=== PATIENT | female | born 1985 | race Caucasian/White ===

== ENCOUNTER 2016-10-08 11:29 | Emergency (ER) | payer SELFPAY ==
[~2016-10-08] VITALS: Ht 165.1 cm; Wt 59.9 kg
--- NOTE | 2016-10-08 11:38 | NUR ---
PT AMBULATORY TO ER BED 21. VAGINAL BLEEDING. PT STATES 12 WEEKS IN VITRO. GOWNED AND PLACED ON MONITOR. NO OTHER COMPLAINTS. AWAITING MD THOMAS.
--- NOTE | 2016-10-08 11:47 | NUR ---
DR COELHO AT BEDSIDE FOR EVAL.
--- NOTE | 2016-10-08 11:55 | NUR ---
ADJUSTMENT EXAMINER AT BEDSIDE FOR BLOOD DRAW.
[2016-10-08 12:03] LABS: APPEARANCE,URINE Slightly Cloudy (CLEAR); BILIRUBIN,URINE Negative (NEGATIVE); BLOOD, URINE Moderate Ery/uL (NEGATIVE); COLOR,URINE Yellow (YELLOW); KETONES,URINE Negative (NEGATIVE); LEUKOCYTE ESTERASE ,URINE Negative (NEGATIVE); NITRITE, URINE Negative (NEGATIVE); PROTEIN,URINE Negative (NEGATIVE); UGLUCOSE Negative (NEGATIVE); UROBILINOGEN,URINE 0.2 EU/dL (0.2)
[2016-10-08 12:13] LABS: ADD URINE CULTURE YES; BACTERIA,URINE Few /HPF (None Seen); RBC,URINE 0-2 /HPF (0-2); SQUAMOUS EPITHELIAL CELL,UR Many /HPF (None Seen)
--- NOTE | 2016-10-08 12:54 | NUR ---
US TECH AT BEDSIDE FOR PELVIC ULTRASOUND.
--- NOTE | 2016-10-08 15:09 | NUR ---
RHOGAM ADMINISTERED. RT DELTOID.
[2016-10-08 15:29] VITALS: BP 121/77
--- NOTE | 2016-10-08 15:29 | NUR ---
Patient discharged to home in stable condition. Written and verbal after care instructions given. Patient verbalizes understanding of instruction.
== END 2016-10-08 15:30 | disposition home or self-care (01) ==
LOC: ER 11:31
DX: O20.8 Other hemorrhage in early pregnancy (principal); Z3A.12 12 weeks gestation of pregnancy
CPT/HCPCS: 36415; 36430; 76805; 81001; 87086; 99285; A4606; J2790; Z7610; 81000-TC; P9016-BL